=== PATIENT | female | born 1995 | race Caucasian/White ===

== ENCOUNTER 2016-10-12 20:05 | Emergency (ER) | payer OTHER ==
[~2016-10-12] VITALS: Ht 152.4 cm; Wt 61.3 kg
[~2016-10-12 20:05] MED LIST: FIORICET 50-321 EAC1 PO; Flintstones PO; LEVETIRACETAM500 MG PO; LEVOTHROID100 MCG PO; MACROBID100 MG PO; NAPROSYN500 MG PO; NOHOMEMEDS; NORCO 5/3251 TABLET PO; OLANZAPINE5 MG PO; REGLAN10 MG PO; SYNTHROID50 MCG PO; ZYRTEC10 M2 PO
[2016-10-12] MEDS ORDERED: PNV PRENATAL P1 EACH PO (21:08)
[2016-10-12] MEDS ORDERED: LAMICTAL100 MG PO (21:08)
[2016-10-12 21:34] LABS: HEMATOCRIT 34.6 % (36.0-46.0); MCH 31.2 PG (29.0-34.0); MCHC 35.8 G/DL (30.0-36.0); MCV 86.9 FL (83-99); MEAN PLAT.VOLUME 9.6 uM^3 (9.5-12.4); PLATELET COUNT 196 K/uL (156-360); RBC DIS.WIDTH-CV 12.2 % (11.8-14.6); RBC DIS.WIDTH-SD 37.6 % (39-53); RED BLOOD COUNT 3.98 M/uL (3.80-5.20); WHITE BLOOD COUNT 8.2 K/uL (4.1-10.2)
[2016-10-12 21:45] LABS: CHLORIDE 105 mEq/L (99-109); POTASSIUM 3.5 mEq/L (3.7-5.4); SODIUM 136 mEq/L (136-147)
[2016-10-12 21:48] LABS: GLUCOSE 83 mg/dL (70-99)
[2016-10-12 21:48] LABS: BILIRUBIN NEGATIVE; BLOOD NEGATIVE; COLOR YELLOW ((YELLOW)); GLUCOSE (STRIP) NEGATIVE; KETONES 15; LEUKOCYTES NEGATIVE; NITRITE NEGATIVE; PROTEIN (STRIP) NEGATIVE; SPECIFIC GRAVITY 1.017 (1.000-1.030)
[2016-10-12 21:49] LABS: ADD MIUA? NO
[2016-10-12 21:49] LABS: ANION GAP 8 MEQ/L (2-14); TOTAL BILIRUBIN 0.6 mg/dL (0.0-1.0)
[2016-10-12 21:51] LABS: ALKALINE PHOSPHATASE 26 IU/L (3-129); GFR ESTIMATE (CALCULATED) > 59 mL/min/
[2016-10-12 21:52] LABS: UREA NITROGEN (BUN) 10 mg/dL (9-23)
[2016-10-12 21:55] LABS: LIPASE 23 U/L (1.0-51.0)
[2016-10-12 22:00] LABS: TROP-I INTERPRETATION NEGATIVE; TROPONIN-I < 0.01 ng/mL (0.0-0.30)
[2016-10-12 22:27] LABS: QUANTITATIVE HCG 87665.6 MIU/ML
[2016-10-12 23:34] LABS: TROP-I INTERPRETATION NEGATIVE; TROPONIN-I < 0.01 ng/mL (0.0-0.30)
[2016-10-12 23:52] VITALS: BP 112/64
== END 2016-10-12 23:52 | disposition home or self-care (01) ==
LOC: EME 20:05
PROVIDERS: Nurse Practitioner Family
DX: O99.89 Other specified diseases and conditions complicating pregnancy, childbirth and the puerperium (principal); R07.9 Chest pain, unspecified; Z3A.10 10 weeks gestation of pregnancy
CPT/HCPCS: 80053; 81003; 83690; 84484; 84702; 85027; 93005; 99281; 99284

== ENCOUNTER 2016-12-10 04:52 | Emergency (ER) | payer OTHER ==
[~2016-12-10] VITALS: Ht 152.4 cm; Wt 62.7 kg
[~2016-12-10 04:52] MED LIST changes: +LAMICTAL100 MG PO; +PNV PRENATAL P1 EACH PO
[2016-12-10 05:31] LABS: HEMATOCRIT 34.5 % (36.0-46.0); MCH 31.7 PG (29.0-34.0); MCHC 35.1 G/DL (30.0-36.0); MCV 90.3 FL (83-99); MEAN PLAT.VOLUME 10.2 uM^3 (9.5-12.4); PLATELET COUNT 193 K/uL (156-360); RBC DIS.WIDTH-CV 12.4 % (11.8-14.6); RBC DIS.WIDTH-SD 40.7 % (39-53); RED BLOOD COUNT 3.82 M/uL (3.80-5.20)
[2016-12-10 05:44] LABS: CHLORIDE 106 mEq/L (99-109); POTASSIUM 3.7 mEq/L (3.7-5.4); SODIUM 137 mEq/L (136-147)
[2016-12-10 05:46] LABS: GLUCOSE 93 mg/dL (70-99)
[2016-12-10 05:47] LABS: ANION GAP 10 MEQ/L (2-14)
[2016-12-10 05:48] LABS: TOTAL BILIRUBIN 0.7 mg/dL (0.0-1.0)
[2016-12-10 05:49] LABS: ALKALINE PHOSPHATASE 25 IU/L (3-129)
[2016-12-10 05:50] LABS: GFR ESTIMATE (CALCULATED) > 59 mL/min/
[2016-12-10 05:51] LABS: UREA NITROGEN (BUN) 8 mg/dL (9-23)
[2016-12-10 05:56] LABS: BILIRUBIN NEGATIVE; BLOOD NEGATIVE; COLOR YELLOW ((YELLOW)); GLUCOSE (STRIP) NEGATIVE; KETONES 20; LEUKOCYTES NEGATIVE; NITRITE NEGATIVE; PROTEIN (STRIP) 30; SPECIFIC GRAVITY 1.025 (1.000-1.030); UROBILINOGEN 0.2 MG/DL (0.2-1.0)
[2016-12-10 06:00] LABS: QUANTITATIVE HCG 8254.5 MIU/ML
[2016-12-10 06:06] LABS: ADD MIUA? NO; UCUL ADDED? NO
[2016-12-10] MEDS ORDERED: BENTYL20 MG PO (06:09)
[2016-12-10] MEDS ORDERED: REGLAN5 MG PO (06:09)
[2016-12-10 06:28] VITALS: BP 118/77
== END 2016-12-10 06:35 | disposition home or self-care (01) ==
LOC: EME 04:52
DX: O26.92 Pregnancy related conditions, unspecified, second trimester (principal); R11.2 Nausea with vomiting, unspecified; R19.7 Diarrhea, unspecified; E86.0 Dehydration; Z3A.19 19 weeks gestation of pregnancy; J45.909 Unspecified asthma, uncomplicated; Z91.048 Other nonmedicinal substance allergy status; Z88.1 Allergy status to other antibiotic agents; J30.1 Allergic rhinitis due to pollen; Z88.0 Allergy status to penicillin; Z91.030 Bee allergy status; G40.909 Epilepsy, unspecified, not intractable, without status epilepticus
CPT/HCPCS: 80053; 81003; 84702; 85027; 99281; 99285; J2765; J7030

== ENCOUNTER 2017-04-11 16:39 | Outpatient (CLI) | payer OTHER ==
[~2017-04-11] VITALS: Ht 152.4 cm; Wt 73.9 kg
[~2017-04-11 16:39] MED LIST changes: +BENTYL20 MG PO; +REGLAN5 MG PO
[2017-04-11 17:20] VITALS: BP 132/89
[2017-04-11] MEDS ORDERED: TYLENOL EXTRA500 MG PO (17:44)
[2017-04-11] MEDS ORDERED: TUMS500 MG PO (17:44)
[2017-04-11 17:48] VITALS: BP 120/73
[2017-04-11 18:26] VITALS: BP 119/77
== END 2017-04-11 19:40 | disposition home or self-care (01) ==
LOC: LDRP-OP 16:39 → 2WEST 16:42 → LDRP-OP 06-04 11:21
DX: O36.8130 Decreased fetal movements, third trimester, not applicable or unspecified (principal); Z3A.36 36 weeks gestation of pregnancy; G40.909 Epilepsy, unspecified, not intractable, without status epilepticus; Z87.891 Personal history of nicotine dependence; R51 Headache
CPT/HCPCS: 59025; G0378

== ENCOUNTER 2017-05-02 07:51 | Inpatient (IN) | payer OTHER ==
[~2017-05-02] VITALS: Ht 152.4 cm; Wt 73.4 kg
[2017-05-02] VITALS (14 sets, daily range): BP systolic 120–137; BP diastolic 69–91
[~2017-05-02 07:51] MED LIST changes: +TUMS500 MG PO; +TYLENOL EXTRA500 MG PO
[2017-05-02 09:17] LABS: EOSINOPHIL (%) 0.9 % (0-5); EOSINOPHIL COUNT 0.1 K/uL (0-0.3); HEMATOCRIT 33.3 % (36.0-46.0); IMMATURE GRANULOCYTE (%) 0.6 % (0.0-0.7); IMMATURE GRANULOCYTE COUNT 0.1 K/uL; INSTRUMENT ABS NEUTROPHIL CT 6.3 K/uL; LYMPHOCYTE COUNT 2.2 K/uL (1.0-2.8); MCH 30.9 PG (29.0-34.0); MCHC 34.2 G/DL (30.0-36.0); MCV 90.2 FL (83-99); MEAN PLAT.VOLUME 11.4 uM^3 (9.5-12.4); MONOCYTE (%) 8.4 % (3-12); MONOCYTE COUNT 0.8 K/uL (0-0.8); NEUTROPHIL (%) 66.5 % (45-76); NEUTROPHIL COUNT 6.3 K/uL (1.8-6.4); PLATELET COUNT 130 K/uL (156-360); RBC DIS.WIDTH-CV 12.5 % (11.8-14.6); RED BLOOD COUNT 3.69 M/uL (3.80-5.20); WHITE BLOOD COUNT 9.4 K/uL (4.1-10.2)
[2017-05-03 08:08] VITALS: BP 127/84
[2017-05-03] MEDS ORDERED: IBUPROFEN800 MG PO (13:11)
[2017-05-03 15:31] VITALS: BP 127/83
[2017-05-04 07:47] VITALS: BP 127/81
== END 2017-05-04 11:57 | disposition home or self-care (01) | DRG 775 ==
LOC: LDRP-OP 07:51 → 2WEST 07:52 → LDRP-OP 09:25 → 2WEST 16:35 → LDRP-OP 06-04 22:18
PROVIDERS: Nurse Practitioner
PROC: 10E0XZZ Delivery of Products of Conception, External Approach (ICD-10-PCS; principal; 2017-05-02)
PROC: 10907ZC Drainage of Amniotic Fluid, Therapeutic from Products of Conception, Via Natural or Artificial Opening (ICD-10-PCS; 2017-05-02)
DX: O99.354 Diseases of the nervous system complicating childbirth (principal); G40.909 Epilepsy, unspecified, not intractable, without status epilepticus; O99.344 Other mental disorders complicating childbirth; F31.9 Bipolar disorder, unspecified; Z3A.39 39 weeks gestation of pregnancy; Z37.0 Single live birth
CPT/HCPCS: 85025; J7120

== ENCOUNTER 2018-04-20 12:25 | Emergency (ER) | payer OTHER ==
[~2018-04-20] VITALS: Ht 152.4 cm; Wt 62.1 kg
[~2018-04-20 12:25] MED LIST changes: +IBUPROFEN800 MG PO
[2018-04-20 14:44] LABS: HEMATOCRIT 37.3 % (36.0-46.0); HEMOGLOBIN 13.4 G/DL (11.9-15.5); MCH 31.1 PG (29.0-34.0); MCHC 35.9 G/DL (30.0-36.0); MCV 86.5 FL (83-99); PLATELET COUNT 232 K/uL (156-360); RBC DIS.WIDTH-SD 38.6 % (39-53); RED BLOOD COUNT 4.31 M/uL (3.80-5.20); WHITE BLOOD COUNT 7.2 K/uL (4.1-10.2)
[2018-04-20 14:58] LABS: CHLORIDE 112 mEq/L (99-109); SODIUM 142 mEq/L (136-147)
[2018-04-20 14:59] LABS: GLUCOSE 94 mg/dL (70-99)
[2018-04-20 15:03] LABS: CREATININE 0.8 mg/dL (0.6-1.3); GFR ESTIMATE (CALCULATED) > 59 mL/min/
[2018-04-20 15:04] LABS: UREA NITROGEN (BUN) 8 mg/dL (9-23)
[2018-04-20 15:11] LABS: QUANTITATIVE HCG < 4.0 MIU/ML
[2018-04-20 15:53] LABS: THYROTROPIN (TSH) 1.7 MIU/L (0.4-5.5)
[2018-04-20 17:12] VITALS: BP 132/86
== END 2018-04-20 17:12 | disposition home or self-care (01) ==
LOC: EME 12:25
PROVIDERS: Physician Assistant
DX: G43.909 Migraine, unspecified, not intractable, without status migrainosus (principal); T38.81 Poisoning by, adverse effect of and underdosing of anterior pituitary [adenohypophyseal] hormones; Z91.128 Patient's intentional underdosing of medication regimen for other reason; E07.9 Disorder of thyroid, unspecified; J45.909 Unspecified asthma, uncomplicated; Z88.0 Allergy status to penicillin; Z88.6 Allergy status to analgesic agent; Z87.891 Personal history of nicotine dependence
CPT/HCPCS: 80048; 84443; 84702; 85027; 99281; 99285; J1200; J1885; J2765; J7030; Q0164